=== PATIENT | female | born 2000 | race African-American/Black ===

== ENCOUNTER 2021-10-02 03:14 | Inpatient (IN) ==
[2021-10-02] MEDS ORDERED: CARBOPROST TROMETHAMINE 250 MCG/ML AMP IM PRN (03:26)
[2021-10-02] MEDS ORDERED: LACTATED RINGERS 500 ML IV PRN (03:26)
[2021-10-02] MEDS ORDERED: TRANEXAMIC ACID 1,000 MG in SODIUM CHLORIDE 0.9% 100 ML IV PRN (03:26)
[2021-10-02] MEDS ORDERED: miSOPROStoL 200 MCG TABLET RECTAL PRN (03:26)
[2021-10-02] MEDS ORDERED: ONDANSETRON 4 MG/2 ML VIAL IV PRN ×2 (03:26→17:08)
[2021-10-02] MEDS ORDERED: METHYLERGONOVINE 0.2 MG/1 ML AMP IM PRN (03:33)
[2021-10-02] MEDS ORDERED: LACTATED RINGERS 250 ML IV ONE (04:00)
[2021-10-02] MEDS ORDERED: OXYTOCIN/LR 20 UNIT/1,000 ML BAG IV ONE ×2 (04:00→17:08)
[2021-10-02 04:02] LABS: Basophils % 0.3 % (0.0-0.8); Eosinophils # 0.1 10*3/uL (0.0-0.87); Eosinophils % 0.9 % (0.00-10.9); Hematocrit 33.3 VOL% (35.7-47.0); Hemoglobin 10.4 GM/DL (12.0-16.0); Immature Granulocytes % 0.5 %; Immature Granulocytes Absolute 0.05 #; Lymphocytes # 2.9 10*3/uL (1.4-4.0); Lymphocytes % 27.5 % (21.3-54.2); Mean Corpuscular HGB Conc 31.2 GM/DL (32-36); Mean Corpuscular Volume 85.4 FL (87-102); Mean Platelet Volume 9.1 FL (9.6-12.0); Monocytes # 1.2 10*3/uL (0.11-0.8); Monocytes % 11.5 % (1.7-12.7); Neutrophils % 59.3 % (38.7-73.9); Platelet Count 300 T/CUMM (130-400); Red Cell Distribution Width 14.1 % (9.3-17.3); White Blood Count 10.6 T/CUMM (4-12)
[2021-10-02] MEDS: LACTATED RINGERS 1,000 ML IV SCH ×2 (04:14→13:00)
[2021-10-02] MEDS ORDERED: AMPICILLIN INJ 2,000 MG in SODIUM CHLORIDE 0.9% 100 ML IV ONE (04:30)
[2021-10-02 05:06] LABS: Alanine Aminotransferase 10 U/L (13-56); Albumin 2.6 G/DL (3.4-5.0); Alkaline Phosphatase 201 U/L (45-117); Aspartate Amino Transferase 12 U/L (0-37); Bilirubin,Total < 0.39 MG/DL (0.20-1.00); Blood Urea Nitrogen 4 MG/DL (7-18); Calcium 8.9 MG/DL (8.5-10.1); Carbon Dioxide 22 MMOL/L (21-32); Chloride 109 MMOL/L (98-107); Estimated Glom Filtration Rate 139 ML/MIN; Glucose 96 MG/DL (74-106); Osmolality,Calculated 273.5 MOS/KG (273-304); Potassium 3.5 MMOL/L (3.5-5.1); Sodium 139 MMOL/L (136-145); Total Protein 6.5 G/DL (6.4-8.2)
[2021-10-02 05:27] LABS: HIV Antigen/Antibody Result Nonreactive (Nonreactive)
[2021-10-02 05:30] LABS: Rubella Antibody IgG Result Reactive (NonReactive)
[2021-10-02 05:32] LABS: Hepatitis B Surface Ag Quant < 0.10 Index; Hepatitis B Surface Ag Result Non-Reactive (NonReactive)
[2021-10-02] MEDS ORDERED: LACTATED RINGERS 1,000 ML IV ONE ×2 (05:45→14:37)
[2021-10-02] MEDS ORDERED: OXYTOCIN/LR 20 UNIT/1,000 ML BAG IV SCH (07:30)
[2021-10-02] MEDS: AMPICILLIN INJ 1,000 MG in SODIUM CHLORIDE 0.9% 100 ML IV SCH ×3 (07:41→16:00)
[2021-10-02] MEDS ORDERED: NALOXONE 0.4 MG/ML VIAL IV PRN (14:37)
[2021-10-02] MEDS ORDERED: CITRIC ACID/SODIUM CITRATE 30 ML UDCUP PO ONE (14:37)
[2021-10-02] MEDS ORDERED: FAMOTIDINE 20 MG/2 ML VIAL IV ONE (14:37)
[2021-10-02] MEDS ORDERED: ePHEDrine 50 MG/ML VIAL IV PRN (14:37)
[2021-10-02] MEDS ORDERED: fentaNYL 2 MCG/ROPIV 0.2% EPID 100 ML EPIDURAL SCH (15:00)
[2021-10-02] MEDS ORDERED: ceFAZolin 2,000 MG/50 ML DUPLEX IV ONE (16:06)
[2021-10-02] MEDS ORDERED: TRANEXAMIC ACID 1,000 MG/10 ML VIAL ONE (16:09)
[2021-10-02] MEDS ORDERED: SODIUM CHLORIDE 0.9% 0 ML IV ONE (16:10)
[2021-10-02] MEDS ORDERED: buprenorphine HCL 0.3 MG/ML VIAL ONE (16:13)
[2021-10-02] MEDS ORDERED: LIDOCAINE MPF 2% /EPI 20 ML VIAL ONE (16:13)
[2021-10-02] MEDS ORDERED: ONDANSETRON 4 MG/2 ML VIAL ONE (16:14)
[2021-10-02 16:59] LABS: Cord Arterial Blood HCO3 22.4 MMOL/L
[2021-10-02 17:03] LABS: Cord Venous Blood HCO3 23.8 MMOL/L; Cord Venous Blood PO2 21.7
[2021-10-02] MEDS ORDERED: PHENYLEPHRINE 1 MG/10 ML SYRINGE IV ONE (17:03)
[2021-10-02] MEDS ORDERED: ACETAMINOPHEN 325 MG TABLET PO PRN (17:08)
[2021-10-02] MEDS ORDERED: RHO(D) IMMUNE GLOBULIN 300 MCG SYRINGE IM ONE (17:08)
[2021-10-02] MEDS ORDERED: SIMETHICONE CHEW 80 MG TABLET PO PRN (17:08)
[2021-10-02 17:14] LABS: Mucus,Urine Occasional /LPF (Occasional)
[2021-10-02 17:16] LABS: Bilirubin,Urine Negative (Negative); Blood, Urine Negative (Negative); Glucose,Urine (UA) Negative (Negative); Ketones,Urine Trace mg/dL (Negative); Nitrite,Urine Negative (Negative); Protein,Urine Negative (Negative); Urine Appearance Clear (Clear); Urine Color Yellow (Yellow); Urine Urobilinogen 0.2 eU/dL (<2.0); Urine pH 8.5 (4.5-8.0)
[2021-10-02] MEDS ORDERED: LACTATED RINGERS 1,000 ML IV SCH (17:30)
[2021-10-02] MEDS ORDERED: hydrOXYzine HCL 25 MG/1 ML VIAL IM PRN (19:04)
[2021-10-02] MEDS ORDERED: HYDROmorphone 1 MG/1 ML SYRINGE IV PRN (19:04)
[2021-10-02] MEDS ORDERED: diphenhydrAMINE 50 MG/1 ML VIAL IV PRN (19:04)
[2021-10-02] MEDS: DOCUSATE SODIUM 100 MG CAPSULE PO SCH (21:48)
[2021-10-03 06:29] LABS: Basophils % 0.2 % (0.0-0.8); Eosinophils # 0.1 10*3/uL (0.0-0.87); Eosinophils % 0.3 % (0.00-10.9); Hematocrit 28.8 VOL% (35.7-47.0); Hemoglobin 9.1 GM/DL (12.0-16.0); Immature Granulocytes % 0.5 %; Immature Granulocytes Absolute 0.07 #; Lymphocytes # 2.3 10*3/uL (1.4-4.0); Lymphocytes % 15.8 % (21.3-54.2); Mean Corpuscular HGB Conc 31.6 GM/DL (32-36); Mean Corpuscular Volume 83.7 FL (87-102); Mean Platelet Volume 9.7 FL (9.6-12.0); Monocytes # 1.3 10*3/uL (0.11-0.8); Monocytes % 9.3 % (1.7-12.7); Neutrophils % 73.9 % (38.7-73.9); Platelet Count 257 T/CUMM (130-400); Red Blood Count 3.44 MC/CUMM (3.8-5.5); Red Cell Distribution Width 14.1 % (9.3-17.3); White Blood Count 14.3 T/CUMM (4-12)
[2021-10-03] MEDS: MULTIVITAMIN (PRENATAL) TABLET PO SCH (08:55)
[2021-10-03] MEDS: IRON (CARBONYL)/VIT C/B12/FA TABLET PO SCH (08:55)
[2021-10-03] MEDS: MAGNESIUM HYDROXIDE SUSP 30 ML UDCUP PO PRN ×2 (08:55→20:39)
[2021-10-03] MEDS: DOCUSATE SODIUM 100 MG CAPSULE PO SCH ×2 (08:55→20:39)
[2021-10-03] MEDS: IBUPROFEN 800 MG TABLET PO PRN (12:53)
[2021-10-04] MEDS: MAGNESIUM HYDROXIDE SUSP 30 ML UDCUP PO PRN (07:40)
[2021-10-04] MEDS: IBUPROFEN 800 MG TABLET PO PRN (07:41)
[2021-10-04] MEDS: MULTIVITAMIN (PRENATAL) TABLET PO SCH (09:26)
[2021-10-04] MEDS: IRON (CARBONYL)/VIT C/B12/FA TABLET PO SCH (09:26)
[2021-10-04] MEDS: DOCUSATE SODIUM 100 MG CAPSULE PO SCH ×2 (09:27→21:34)
[2021-10-04] MEDS ORDERED: BISACODYL 10 MG SUPP RECTAL ONE (12:00)
[2021-10-05] MEDS: DOCUSATE SODIUM 100 MG CAPSULE PO SCH (08:58)
[2021-10-05] MEDS: IRON (CARBONYL)/VIT C/B12/FA TABLET PO SCH (08:59)
[2021-10-05] MEDS: MULTIVITAMIN (PRENATAL) TABLET PO SCH (08:59)
[2021-10-05 12:04] VITALS: BP 126/59
== END 2021-10-05 14:30 | disposition home or self-care (01) | DRG 540 ==
LOC: N.LD 03:14 → N.OB 20:10
PROVIDERS: ADMIT Obstetrics & Gynecology; ATTEND Obstetrics & Gynecology
PROC: LDCSECT (ICD-10-PCS; 2021-10-02 16:00)